=== PATIENT | male | born 1995 | race African-American/Black ===

== ENCOUNTER 2024-05-15 16:13 | Emergency (ER) | payer OTHER, SELFPAY ==
--- NOTE | ~2024-05-15 | XR_ITS ---
EXAMINATION: XR CHEST CLINICAL INFORMATION: shortness of breath COMPARISON: None available. TECHNIQUE: 2 views of the chest were obtained. FINDINGS: No significant abnormality is noted involving the heart, lungs, mediastinum, bony thorax or soft tissues. XR/XR chest 2V IMPRESSION: Unremarkable examination. Electronically signed by: Alirio Hqaue MD 05/15/2024 05:38 PM [facility]
[2024-05-15 16:17] VITALS: BP 125/80; PULSE 106; O2SAT 100
[2024-05-15 16:27] VITALS: BP 115/74; PULSE 115; RESP 16; TEMP 37.7; O2SAT 98; BMI 28.8
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
[2024-05-15] MEDS: Albuterol Sulfate 90 MCG 8 GM INHALER 4 PUFF INHALE (16:49)
[2024-05-15 16:51] VITALS: PULSE 117; RESP 17; O2SAT 99
[2024-05-15 18:23] VITALS: BP 144/76; PULSE 99; RESP 19; TEMP 36.6; O2SAT 98
[2024-05-15 18:51] LABS: Influenza A PCR NEGATIVE (Negative); Influenza B PCR NEGATIVE (Negative); Resp Syncy Virus RNA Qual PCR NEGATIVE (Negative); SARS COV2 PCR INHOUSE NEGATIVE (Negative)
== END 2024-05-15 18:24 | disposition home or self-care (01) ==
PROVIDERS: Nurse Practitioner Family; Emergency Provider Emergency Medicine
DX: J45.901 Unspecified asthma with (acute) exacerbation (principal); Z03.818 Encounter for observation for suspected exposure to other biological agents ruled out
CPT/HCPCS: 0241U; 71046; 94640; 94664; 99283; 99284

== ENCOUNTER 2024-09-08 19:03 | Emergency (ER) | payer OTHER, SELFPAY ==
[2024-09-08 19:13] VITALS: BP 121/77; PULSE 97; RESP 20; TEMP 37; O2SAT 100; BMI 26.7
--- NOTE | 2024-09-08 19:21 | ED.GENADULT ---
HPI - General Adult General Chief complaint: Skin/Abscess/Foreign Body Stated complaint: Skin pranay outbreak Time Seen by Provider: 09/08/24 19:21 Source: patient, RN notes reviewed and old records reviewed Mode of arrival: ambulatory Limitations: no limitations History of Present Illness ED Provider: Leandro HPI narrative: 29 year old male with past medical history significant for chronic eczema presents for evaluation of what he believes his eczema on his hands. He actually reports a diffuse, itchy rash to most of his body including face, back, torso but primarily on his hands. 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 He believes this is worsening his eczema. He has dry, cracked skin, especially in between his fingers which is painful and he reports there was foul-smelling discharge. He reports he has been on prednisone about every other month for the last year due to eczema. He states that whenever he stops his prednisone his symptoms return He has never seen dermatology Related Data Previous Rx's ?Medication ?Instructions ?Recorded albuterol sulfate 90 mcg/actuation 2 puff inhalation Q4-6H PRN 05/15/24 aerosol inhaler shortness of breath or wheezing #6.7 grams prednisone 10 mg tablet 10 mg PO DIRECTED #20 tabs 05/15/24 cephalexin 500 mg tablet 500 mg PO Q8H #15 tabs 09/08/24 prednisone 20 mg tablet 40 mg (2 x 20 mg) PO DAILY #18 tabs 09/08/24 triamcinolone acetonide 0.1 % 1 appl topical BID 1 week #80 grams 09/08/24 topical ointment Allergies Allergy/AdvReac Type Severity Reaction Status Date / Time Penicillins Allergy Rash Verified 05/15/24 16:31 shellfish derived [shellfish] Allergy Anaphylaxis Verified 09/08/24 19:19 Review of Systems Constitutional: Constitutional: Denies body ache(s), Denies chills and Denies fever(s) Integumentary/Breasts: Skin/Breast: Reports erythema, Reports rash and Reports wounds PMFSH Social History Social History Advance Directives: No Advance Directives Information Provided: No Do you have a plan to hurt others: No Plan Physical Exam ED Vital Signs: Vital Signs - 24 hr 09/08/24 19:13 Temperature 98.6 F Pulse Rate 97 Respiratory Rate 20 Blood Pressure 121/77 Pulse Oximetry 100 Oxygen Delivery Method Room Air BMI result Body Mass Index 26.7 Const General: healthy appearing, comfortable, no acute distress, alert and awake Nutritional Appearance: well nourished Orientation/consciousness: patient oriented x3 HENMT Head: Yes normocephalic and Yes atraumatic Eyes Eyelids: Yes eyelids normal Conjunctivae: conjunctivae normal Sclerae: sclerae normal Corneas: corneas normal Pupils: Equal, round and reactive pupils present EOM: EOMs intact bilaterally Neck Neck: Yes full ROM Resp Effort & Inspection: normal respiratory effort, able to speak in complete sentences and not labored Skin Other: Patient has diffuse, blotchy, dry, cracked skin. This is most significant on the dorsal surface of the right hand with significant lichenification. He has some cracks in between the web spacing of his fingers. There is no significant beefy red erythema. To a lesser extent the left hand is also involved. He was able to bend all of his fingers. This severe rash stops at the level of the wrist bilaterally. General skin exam: elasticity normal Neuro General: patient oriented x3 Cranial nerves: Yes Equal, round and reactive pupils present and Yes Bilaterally intact EOM present Cognition (Neuro): normal cognition Extrem Other: Moving all extremities well without any obvious deformities Medications Administered Discontinued Medications Generic Name Dose Route Start Last Admin Trade Name Freq PRN Reason Stop Dose Admin Methylprednisolone Sodium Succinate 60 mg 09/08/24 19:25 09/08/24 19:30 Methylprednisolone Sod Succ 125 Mg/2 Ml Vial IM 09/08/24 19:26 60 mg ONCE ONE Administration Medical Decision Making Medical Decision Making [facility] Narrative: 29-year-old male with a history of eczema presents for evaluation of a severe, itchy rash. His symptoms are consistent with a fairly significant eczema, likely exacerbated by his work of washing his hands and wearing gloves leading to sweaty hands. I discussed this with the patient. I encouraged him to follow up with Dermatology and he will try to see how outside dermatology and and [place]. We will give him a dose of Solu-Medrol IM as his symptoms are diffuse, oral cephalexin for prophylaxis due to the dry, cracked skin and foul-smelling drainage. We will also give topical triamcinolone ointment for the worst area on his hands. There was no involvement of the mucosa, the patient has no fever, no evidence of sepsis Differential Diagnosis Differential Diagnoses: The differential diagnosis associated with the presentation includes Eczema Dermatitis Psoriasis Acute rash Discharge Plan Discharge Clinical Impression: Eczema Patient Disposition: Home, Self-Care Instructions: Eczema (ED) Additional Instructions: Use the prednisone prescription as prescribed. You were given a dose of IM Solu-Medrol which is a steroid Apply triamcinolone ointment twice daily for 1 week Take cephalexin 3 times daily for 5 days Follow-up with Dermatology, you may call the number provided Return for new or worsening symptoms [facility] [address] [place] [address] [id number] Prescriptions: New prednisone 20 mg tablet 40 mg PO DAILY Qty: 18 0RF Rx Instructions: 60mg x3 days, 40mg x3 days, 20mg x3 days cephalexin 500 mg tablet 500 mg PO Q8H Qty: 15 0RF triamcinolone acetonide 0.1 % ointment 1 appl topical BID 7 Days Qty: 80 0RF No Action albuterol sulfate 90 mcg/actuation HFA aerosol inhaler 2 puff inhalation Q4-6H PRN (Reason: shortness of breath or wheezing) Qty: 6.7 0RF prednisone 10 mg tablet 10 mg PO DIRECTED Qty: 20 0RF Rx Instructions: see taper instructions Stand Alone Forms: Work/School Release Print Language: Somali
[2024-09-08] MEDS: methylPREDNISolone Sod Succ 125 MG/2 ML VIAL 60 MG IM (19:30)
[2024-09-08 19:35] VITALS: BP 121/77; PULSE 97; RESP 20; TEMP 37; O2SAT 100
== END 2024-09-08 19:35 | disposition home or self-care (01) ==
PROVIDERS: Emergency Provider Emergency Medicine
DX: L30.9 Dermatitis, unspecified (principal); R21 Rash and other nonspecific skin eruption
CPT/HCPCS: 96372; 99282; 99284; J2919

== ENCOUNTER 2025-03-17 09:44 | Emergency (ER) | payer OTHER, SELFPAY ==
--- NOTE | ~2025-03-17 | XR_ITS ---
CLINICAL HISTORY: pain swelling 4 view right wrist Comparison: None provided Findings: No fractures or dislocations. No significant loss of joint space, osteophyte, or erosions. No radiopaque foreign body. IMPRESSION: 1. No acute findings This document has been electronically signed by: Jamaal Araya MD on 03/17/2025 12:02:39
--- NOTE | ~2025-03-17 | XR_ITS ---
CLINICAL HISTORY: pain swelling 3 view right hand Comparison: None provided Findings: No fractures or dislocations. No significant loss of joint space or osteophytes. No erosions. No radiopaque foreign body. IMPRESSION: 1. No acute findings This document has been electronically signed by: Jamaal Araya MD on 03/17/2025 12:02:23
--- NOTE | ~2025-03-17 | XR_ITS ---
CLINICAL HISTORY: 1 week of productive cough 1 view chest x-ray Comparison: 05/15/2024 Findings: No consolidation or effusion. Heart size is normal. No acute fracture. IMPRESSION: 1. No acute findings. This document has been electronically signed by: Jamaal Araya MD on 03/17/2025 14:03:05
[2025-03-17 09:50] VITALS: BP 157/67; PULSE 74; RESP 20; TEMP 36.6; O2SAT 97; BMI 27.9
--- NOTE | 2025-03-17 11:54 | ED.EXTPRO ---
HPI - Extremity Problem General Chief complaint: Extremity Injury, Upper Stated complaint: R hand pain Time Seen by Provider: 03/17/25 10:26 Source: patient, RN notes reviewed and old records reviewed Mode of arrival: ambulatory Limitations: no limitations History of Present Illness ED Provider: JULIUS Hollingsworth HPI Narrative: 29-year-old male with medical history of asthma, eczema presents to the ED due to 2 days of right hand pain. Patient states he woke up 2 days ago and note his pain and swelling in the right hand. 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 He denies any injury, trauma or falls. Patient states he has had a bad flare of total-body eczema and was seen 6 days ago at [facility] emergency department and was prescribed a 7 day prednisone taper that he has 1 day left of to complete. Additionally, patient states he has had 2 days of chills, subjective fever, with 1 week of productive cough. Denies chest pain, shortness of breath, nausea, vomiting, abdominal pain, headaches, visual changes Related Data Previous Rx's ?Medication ?Instructions ?Recorded albuterol sulfate 90 mcg/actuation 2 puff inhalation Q4-6H PRN 05/15/24 aerosol inhaler shortness of breath or wheezing #6.7 grams prednisone 10 mg tablet 10 mg PO DIRECTED #20 tabs 05/15/24 cephalexin 500 mg tablet 500 mg PO Q8H #15 tabs 09/08/24 prednisone 20 mg tablet 40 mg (2 x 20 mg) PO DAILY #18 tabs 09/08/24 triamcinolone acetonide 0.1 % 1 appl topical BID 1 week #80 grams 09/08/24 topical ointment cephalexin 500 mg capsule 500 mg PO BID 7 days #14 caps 03/17/25 doxycycline hyclate 100 mg capsule 100 mg PO BID 7 days #14 caps 03/17/25 Allergies Allergy/AdvReac Type Severity Reaction Status Date / Time Penicillins Allergy Rash Verified 03/17/25 09:53 shellfish derived (shellfish) Allergy Anaphylaxis Verified 03/17/25 09:53 Review of Systems Review of Systems: CONST: Negative for fever, body aches and chills. POS chills HENT: Negative for neck pain/stiffness, headache, congestion, sore throat, swelling. EYES: Negative for discharge/pain or vision changes. RESP: Negative for hemoptysis and shortness of breath. POS productive cough CV: Negative chest pain, difficulty breathing, palpitations. ABD: Negative pain, nausea, vomiting. : Negative increase frequency, dysuria, blood in urine or stool. MUSC: Negative for muscle aches, edema. POS R hand pain SKIN: Negative rash, lesions/sores. NEURO: Negative headache, dizziness, weakness. Yes all other systems are reviewed and are negative [facility] Past Medical History Attestation statement: The following information was validated with the patient. Source: old records reviewed and nursing notes reviewed Social History Social History Advance Directives: No Advance Directives Information Provided: No Do you have a plan to hurt others: No Plan Physical Exam Vital Signs: Vital Signs: Last Vital Signs Temp 97.8 F 03/17/25 16:16 Pulse 74 03/17/25 16:16 Resp 20 03/17/25 16:16 BP 157/67 H 03/17/25 16:16 Pulse Ox 97 03/17/25 16:16 O2 Del Method Room Air 03/17/25 16:16 BMI result Body Mass Index 27.9 GENERAL APPEARANCE: ?AxOx4, generally well-appearing, no acute distress. HEENT: ?NC, AT. MMM. EOMI, clear conjunctiva, oropharynx clear. NECK: ?Supple without lymphadenopathy.? No stiffness or restricted ROM. HEART:? Normal rate and regular rhythm, normal S1/S2, no m/r/g LUNGS:? Diminished breath sounds throughout all lung bases, no inspiratory or expiratory wheeze noted, no rhonchi ABDOMEN: ?Soft, nontender, nondistended with good bowel sounds heard. BACK: No CVAT, no obvious deformity. EXTREMITIES: ?Without cyanosis, clubbing or edema. Right hand TTP over palmar and volar aspect, no warmth or erythema appreciated, hands with extensive eczema noted, ROM and opposition intact however patient does have pain when making a fist, no significant edema noted, no fusiform swelling noted. Radial pulses 2+ bilaterally, SILT bilaterally NEUROLOGICAL: ?Grossly nonfocal. Alert and oriented, moving all 4 extremities. Observed to ambulate with normal gait. Skin: ?Warm and dry without any rash. Medications Administered Discontinued Medications Generic Name Dose Route Start Last Admin Trade Name Sarah PRN Reason Stop Dose Admin Acetaminophen 975 mg 03/17/25 12:57 03/17/25 13:11 Acetaminophen 325 Mg Tablet PO 03/17/25 12:58 975 mg ONCE ONE Administration Hydroxyzine HCl 25 mg 03/17/25 13:48 03/17/25 14:16 Hydroxyzine Hcl 25 Mg Tablet PO 03/17/25 13:49 25 mg ONCE ONE Administration Ketorolac Tromethamine 30 mg 03/17/25 12:57 03/17/25 13:11 Ketorolac Tromethamine 30 Mg/Ml Vial IM 03/17/25 12:58 30 mg ONCE ONE Administration Medical Decision Making Medical Decision Making [facility] Narrative: 29-year-old male with medical history of asthma, eczema presents to the ED due to 2 days of right hand pain. Patient states he woke up 2 days ago and note his pain and swelling in the right hand. 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 Patient has history of eczema and has been seen recently in the [facility] ED and prescribed 7 day course of prednisone taper for inflammation with 1 day left of treatment. Additionally, patient with chills, fever, 1 week of productive cough. Denies recent injury, trauma or fall to the hand. Denies recent sick contacts. Denies history of IVDU Labs reveal leukocytosis of 12.7 with a left shift of 74.4, H&H stable, elevated CRP of 2.86, no electrolyte imbalance. Viral serology negative for COVID/flu XR right wrist/XR right hand negative for fracture, dislocation or large joint effusion. CXR negative for acute cardiopulmonary processes. At this time I suspect symptoms are due to possible cellulitis since he has history of eczema with possible skin break to allow for bacterial penetration due to mildly elevated leukocytosis of 12.7 with left shift of 74.4. This is less likely a septic arthritis as patient is afebrile, the hand is without warmth, ROM/opposition intact, less likely flexor tenosynovitis. Patient will be discharged with 7 day course of Keflex and doxycycline for bacterial coverage. Patient does not have a primary care provider however I provided referrals for him to follow up with the become established. I counseled patient on strict return precautions. Patient is in agreement with the plan. Differential Diagnosis Differential Diagnoses: The differential diagnosis associated with the presentation includes Flexor tenosynovitis Septic arthritis Cellulitis Carpal tunnel Viral illness Admission/Observation Consideration of admission/observation: Escalation of care including admission/observation considered Lab Data MDM Lab Attestation statement: I reviewed the patient's lab results. 03/17/25 13:17 03/17/25 13:17 Labs: Lab Results 03/17/25 03/17/25 Range/Units 13:17 13:52 WBC 12.7 H (4.8-10.8) X10*3/uL RBC 5.73 (4.60-5.80) X10*6/uL Hgb 16.7 (14.0-18.0) g/dl Hct 50.3 (42.0-52.0) % MCV 87.8 (80.0-98.0) fL MCH 29.1 (27.0-33.0) pg MCHC 33.2 (31.0-36.0) g/dl RDW 14.0 (11.0-16.0) % Plt Count 381 (160-400) X10*3/uL MPV 8.9 L (9.4-12.4) fL Immature Gran % (Auto) 0.4 (0.0-0.4) % Neut % (Auto) 74.4 H (45-73) % Lymph % (Auto) 10.8 L (20-40) % Hinds % (Auto) 5.6 (2-11) % Eos % (Auto) 8.5 H (0-4) % Baso % (Auto) 0.3 (0-2) % Lymph # (Auto) 1.4 (1.2-4.9) X10*3/uL Hinds # (Auto) 0.7 (0.1-1.2) X10*3/uL Eos # (Auto) 1.1 H (0.0-0.4) X10*3/uL Baso # (Auto) 0.0 (0.0-0.2) X10*3/uL Abs Immat Gran (auto) 0.05 H (0.00-0.03) X10*3/uL Absolute Neuts (auto) 9.4 H (2.0-8.3) x10*3/uL Absolute Nucleated RBC 0.000 (0.0-0.012) X10*3/uL Nucleated RBC % (auto) 0.0 (0.0-0.2) /100WBC ESR 1 (0-15) MM/HR Sodium 140 (135-145) mmol/L Potassium 4.3 (3.3-5.1) mmol/L Chloride 108 (96-108) mmol/L Carbon Dioxide 26 (22-29) mmol/L Anion Gap 10 L (12-20) BUN 9 (9-16) mg/dL Creatinine 0.84 (0.5-1.4) mg/dL Estim Creat Clear Calc 142.0 Estimated GFR > 60 Random Glucose 88 (60-115) mg/dL Calcium 8.6 (8.4-10.2) mg/dL Magnesium 2.2 (1.6-2.6) mg/dL Total Bilirubin 0.5 (0.0-1.0) mg/dL AST 27 (5-37) U/L ALT 23 (0-40) U/L Alkaline Phosphatase 74 (39-117) U/L C-Reactive Protein 2.86 H (< or = 0.50) mg/dL Total Protein 6.8 (6.5-8.0) g/dL Albumin 3.7 (3.5-5.0) g/dL COVID-19 ([facility]YSHA) Negative (Negative) COVID-19 Clin Com See Note Influenza Type A ([facility]) Negative (Negative) Influenza Type B ([facility]) Negative (Negative) Influenza A & B Note See Note Independent Interpretation I performed an independent interpretation of an: Plain X-Ray Interpretation: I independently interpreted the chest x-ray which was negative for pleural effusion, pulmonary edema, infiltrates, consolidations, cardiomegaly, I agree with the radiologist's interpretation I independently interpreted the right hand x-ray which was negative for fracture, dislocation and a large joint effusion, I agree with the radiologist's interpretation I independently interpreted the right wrist x-ray which was negative for fracture, dislocation, or large joint effusion, I agree with the radiologist's interpretation. Radiology Impression Discussion of test interpretation with radiology: I have reviewed the radiologist's reading. Radiologist Impression: CXR Findings: No consolidation or effusion. Heart size is normal. No acute fracture. IMPRESSION: 1. No acute findings. This document has been electronically signed by: Jamaal Araya MD on 03/17/2025 14:03:05 Dictated By: Jamaal Araya MD Signed By: <Electronically signed by Jamaal Araya MD in OV> 03/17/25 1404 XR R hand Findings: No fractures or dislocations. No significant loss of joint space or osteophytes. No erosions. No radiopaque foreign body. IMPRESSION: 1. No acute findings This document has been electronically signed by: Jamaal Araya MD on 03/17/2025 12:02:23 Dictated By: Jamaal Araya MD Signed By: <Electronically signed by Jamaal Araya MD in [place]> 03/17/25 1202 XR R wrist Findings: No fractures or dislocations. No significant loss of joint space, osteophyte, or erosions. No radiopaque foreign body. IMPRESSION: 1. No acute findings This document has been electronically signed by: Jamaal Araya MD on 03/17/2025 12:02:39 Dictated By: Jamaal Araya MD Signed By: <Electronically signed by Jamaal Araya MD in OV> 03/17/25 1203 External Record Review External record reviewed: Inpatient record, Office record and Outpatient record Prescription Management I considered prescription management with: Other (Prednisone) I considered prednisone for inflammation however patient is already on a 7 day steroid taper. Chronic Conditions Patient?s care impacted by: Other (Asthma, eczema) Discharge Plan Discharge Clinical Impression: Cellulitis Patient Disposition: Home, Self-Care Additional Instructions: You were evaluated in the ED today for right hand pain. Your lab work revealed an elevated white blood cell count of 12.7, this could be due to infection/inflammation or due to your recent steroid taper. No evidence of anemia or electrolyte imbalance today. You were concerned for diabetes but your random serum glucose today was normal at 88. Your x-ray was negative for fracture, dislocation or for significant joint swelling. You are being prescribed a 7 day course of keflex and doxycycline for cellulitis which is a bacterial infection of the skin. Please complete this entire course of medication. Additionally, you can take 500 mg of Tylenol and 400 mg of ibuprofen every 6 hours to manage the pain. You stated you do not have a primary care doctor. I have placed referrals for you. You need to call their office as they will not call you. Please return to the emergency department if you experience fevers over 100.4?, worsening right hand pain, stiffness in the hand, inability to move the hand, loss of sensation in the hand, or any new/worsening/concerning symptoms. Prescriptions: New cephalexin 500 mg capsule 500 mg PO BID 7 Days Qty: 14 0RF doxycycline hyclate 100 mg capsule 100 mg PO BID 7 Days Qty: 14 0RF No Action albuterol sulfate 90 mcg/actuation HFA aerosol inhaler 2 puff inhalation Q4-6H PRN (Reason: shortness of breath or wheezing) Qty: 6.7 0RF prednisone 10 mg tablet 10 mg PO DIRECTED Qty: 20 0RF Rx Instructions: see taper instructions prednisone 20 mg tablet 40 mg PO DAILY Qty: 18 0RF Rx Instructions: 60mg x3 days, 40mg x3 days, 20mg x3 days cephalexin 500 mg tablet 500 mg PO Q8H Qty: 15 0RF triamcinolone acetonide 0.1 % ointment 1 appl topical BID 7 Days Qty: 80 0RF Referrals: [facility] [Provider Group, Internal Medicine] Angus Darden MD [Physician, Medical] Sidra Andrade MD [Physician, Internal Medicine] Verona Brown PA [Physician Supervisor [employer], Primary Care] Dave Cifuentes MD [Physician, Internal Medicine] Stand Alone Forms: Work/School Release Interventions: ED Discharge Assessment Last Done: 03/17/25 16:16 Discharge Date/Time: 03/17/25 16:17 Print Language: Bangladeshi
--- NOTE | 2025-03-17 13:13 | PC.NURSE ---
pt medicated per AUG for 9 hand pain. pt also c/o eczema itch- requests maranda ELLIS notified
[2025-03-17 13:22] LABS: MANUAL DIFF FLAG NO
[2025-03-17 13:23] LABS: Hematocrit 50.3 % (42.0-52.0); Hemoglobin 16.7 g/dl (14.0-18.0); Imm Gran Abs Auto 0.05 X10*3/uL (0.00-0.03); Imm Gran Pct Auto 0.4 % (0.0-0.4); Lymphocytes Absolute Auto 1.4 X10*3/uL (1.2-4.9); Mean Corpuscular HGB Conc 33.2 g/dl (31.0-36.0); Mean Corpuscular Hemoglobin 29.1 pg (27.0-33.0); Mean Corpuscular Volume 87.8 fL (80.0-98.0); NRBC Abs Auto 0.000 X10*3/uL (0.0-0.012); NRBC Pct Auto 0.0 /100WBC (0.0-0.2); Platelet Count 381 X10*3/uL (160-400); Red Blood Count 5.73 X10*6/uL (4.60-5.80); White Blood Count 12.7 X10*3/uL (4.8-10.8)
[2025-03-17 13:53] LABS: Alanine Aminotransferase 23 U/L (0-40); Albumin Level 3.7 g/dL (3.5-5.0); Alkaline Phosphatase 74 U/L (39-117); Anion Gap 10 (12-20); Aspartate Amino Transferase 27 U/L (5-37); Blood Urea Nitrogen 9 mg/dL (9-16); Calcium 8.6 mg/dL (8.4-10.2); Carbon Dioxide 26 mmol/L (22-29); Chloride 108 mmol/L (96-108); Creatinine Clr Calc Pharmacy 142.0; Estimated Glomerular Filt Rate > 60; Magnesium 2.2 mg/dL (1.6-2.6); Potassium 4.3 mmol/L (3.3-5.1); Sodium 140 mmol/L (135-145); Total Protein 6.8 g/dL (6.5-8.0)
[2025-03-17 14:21] LABS: COVID-19 Test Negative (Negative); IDNOW Serial# 55D5AD1C
[2025-03-17 14:32] LABS: IDNOW Serial# 58CA691E; Influenza B2 Negative (Negative)
[2025-03-17 16:16] VITALS: BP 157/67; PULSE 74; RESP 20; TEMP 36.6; O2SAT 97
== END 2025-03-17 16:17 | disposition home or self-care (01) ==
PROVIDERS: Emergency Provider Emergency Medicine
DX: L03.113 Cellulitis of right upper limb (principal); M79.641 Pain in right hand; R05.9 Cough, unspecified; R50.9 Fever, unspecified; M25.531 Pain in right wrist; Z11.52 Encounter for screening for COVID-19; Z79.899 Other long term (current) drug therapy
CPT/HCPCS: 36415; 71045; 73110; 73130; 80053; 83735; 85025; 85652; 86140; 87502; 87635; 96372; 99283; 99284; J1885

== ENCOUNTER → 2025-03-17 09:55 | Outpatient (BNV) | payer OTHER, SELFPAY | PROVIDERS: Emergency Provider Emergency Medicine; Visit Provider Specialist | DX: R05.9 Cough, unspecified (principal); M79.641 Pain in right hand; M79.89 Other specified soft tissue disorders | CPT/HCPCS: 71045; 73110; 73130 ==

== ENCOUNTER 2025-03-19 17:35 | Emergency (ER) | payer OTHER, SELFPAY ==
--- NOTE | 2025-03-19 17:48 | PC.NURSE ---
Per EMS they brought patient to the waiting room and he immediately walked out
--- NOTE | 2025-03-19 18:48 | PC.NURSE ---
pt came via EMS, got off stretcher and walked out of walking room, per security was sitting down by the side walk and waved down EMS off [facility] property and is no longer on property.
== END 2025-03-19 18:49 | disposition left against medical advice (07) ==
PROVIDERS: Emergency Provider Emergency Medicine
DX: L85.3 Xerosis cutis (principal); Z53.21 Procedure and treatment not carried out due to patient leaving prior to being seen by health care provider